=== PATIENT | female | born 1970 | race Caucasian/White ===

== ENCOUNTER → 2023-11-26 11:26 | Outpatient (REF) | payer OTHER, SELFPAY | LOC: WDC 11:26 | PROVIDERS: ATTENDING PHYSICIAN Obstetrics & Gynecology Gynecology; FAMILY PHYSICIAN Family Medicine | DX: Z12.31 Encounter for screening mammogram for malignant neoplasm of breast (principal) | CPT/HCPCS: 77063; 77067 ==

== ENCOUNTER → 2024-04-29 08:55 | Outpatient (REF) | payer OTHER, SELFPAY | LOC: RCS 08:55 | PROVIDERS: ATTENDING PHYSICIAN Physician Assistant | DX: R07.89 Other chest pain (principal); R06.09 Other forms of dyspnea; I36.1 Nonrheumatic tricuspid (valve) insufficiency | CPT/HCPCS: 93306 ==

== ENCOUNTER → 2024-05-03 07:27 | Outpatient (REF) | payer OTHER, SELFPAY | LOC: RCS 07:27 | PROVIDERS: ATTENDING PHYSICIAN Physician Assistant; FAMILY PHYSICIAN Family Medicine | DX: R07.89 Other chest pain (principal); R06.09 Other forms of dyspnea; I36.1 Nonrheumatic tricuspid (valve) insufficiency | CPT/HCPCS: 93017 ==

== ENCOUNTER → 2024-07-05 10:17 | Outpatient (REF) | payer OTHER, SELFPAY | LOC: RAD 10:17 | PROVIDERS: ATTENDING PHYSICIAN Family Medicine | DX: M79.89 Other specified soft tissue disorders (principal); M25.561 Pain in right knee | CPT/HCPCS: 73564; 93971 ==

== ENCOUNTER → 2024-11-10 09:38 | Outpatient (REF) | payer OTHER, SELFPAY | LOC: RAD 09:38 | PROVIDERS: ATTENDING PHYSICIAN Internal Medicine; FAMILY PHYSICIAN Family Medicine | DX: K50.111 Crohn's disease of large intestine with rectal bleeding (principal); R19.7 Diarrhea, unspecified | CPT/HCPCS: 74177; Q9967 ==

== ENCOUNTER → 2024-12-29 08:27 | Outpatient (REF) | payer OTHER, SELFPAY | LOC: WDC 08:27 | PROVIDERS: ATTENDING PHYSICIAN Obstetrics & Gynecology Gynecology; FAMILY PHYSICIAN Family Medicine | DX: Z12.31 Encounter for screening mammogram for malignant neoplasm of breast (principal) | CPT/HCPCS: 77063; 77067 ==